=== PATIENT | male | born 2000 | race Hispanic/Latino ===

== ENCOUNTER 2021-05-09 21:36 | Emergency (ER) | payer SELFPAY ==
[~2021-05-09] VITALS: Ht 172.7 cm; Wt 86.2 kg
[2021-05-09] MEDS ORDERED: TETANUS/DIPHTHERIA TOX ADULT 0.5 ML SYR ONE (22:15)
[2021-05-09] MEDS ORDERED: TETANUS/DIPHTHERIA TOX ADULT 0.5 ML SYR IM STA (22:18)
[2021-05-09] MEDS ORDERED: MUPIROCIN 2% OINT 22 GM TUBE TOP ONE (22:30)
== END 2021-05-09 23:00 | disposition home or self-care (01) ==
LOC: FSED 21:50
DX: S61.412A Laceration without foreign body of left hand, initial encounter (principal); W45.0XXA Nail entering through skin, initial encounter; Y92.008 Other place in unspecified non-institutional (private) residence as the place of occurrence of the external cause
CPT/HCPCS: 90714; 99283